=== PATIENT | female | born 1990 | race Caucasian/White ===

== ENCOUNTER 2016-12-16 12:58 | Emergency (ER) | payer OTHER, MEDICAID ==
[~2016-12-16] VITALS: Ht 152.4 cm; Wt 61.2 kg
[2016-12-16] MEDS ORDERED: fentaNYL INJECTION 100 MCG/2 ML AMP ONE ×3 (13:18→16:02)
[2016-12-16 13:24] LABS: RED BLOOD COUNT 4.41 10^6/uL (4.35-5.85); RED CELL DISTRIBUTION WIDTH 12.2 % (10.0-14.5); WHITE BLOOD COUNT 6.6 10^3/uL (4.3-11.0)
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
[2016-12-16] MEDS ORDERED: ONDANSETRON 4 MG/2 ML (SDV) Z0FRAN ONE (13:42)
[2016-12-16 13:44] LABS: ALANINE AMINOTRANSFERASE 15 U/L (0-55); ALCOHOL < 10 MG/DL (<10); ANION GAP 5 MMOL/L (5-14); ASPARTATE AMINO TRANSFERASE 23 U/L (5-34); BILIRUBIN,DIRECT 0.2 MG/DL (0.0-0.3); BILIRUBIN,INDIRECT 0.3 MG/DL; BILIRUBIN,TOTAL 0.5 MG/DL (0.1-1.0); BLOOD UREA NITROGEN 12 MG/DL (7-18); BUN/CREATININE RATIO 17; CALCIUM 8.2 MG/DL (8.5-10.1); CARBON DIOXIDE 26 MMOL/L (21-32); CHLORIDE 110 MMOL/L (98-107); GFR ESTIMATED > 60; GLUCOSE 87 MG/DL (70-105); POTASSIUM 3.5 MMOL/L (3.6-5.0); SODIUM 141 MMOL/L (135-145); TOTAL PROTEIN 6.4 G/DL (6.4-8.2)
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
--- NOTE | 2016-12-16 15:20 | Diagnostic Imaging Report ---
EXAMINATION: Two views of the right femur. INDICATION: Right hip pain. FINDINGS: There is no fracture, dislocation or radiopaque foreign body. IMPRESSION: Unremarkable exam. Dictated by: Dictated on workstation # [id number]
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
[2016-12-16] MEDS ORDERED: [UNRECOGNIZED DRUG - REMARK] PO (15:27)
[2016-12-16] MEDS ORDERED: MUPIROCIN 2% OINT 22 GM (BACTROBAN) TUBE ONE (16:08)
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
[2016-12-16] MEDS ORDERED: CEPH500T PO (16:53)
[2016-12-16] MEDS ORDERED: CYCL10TA9 PO (16:53)
[2016-12-16] MEDS ORDERED: HYDR-3816 PO (16:53)
[2016-12-16 17:08] VITALS: BP 119/64
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
== END 2016-12-16 17:08 | disposition home or self-care (01) ==
LOC: ER 13:06
DX: S60.511A Abrasion of right hand, initial encounter (principal); S19.9XXA Unspecified injury of neck, initial encounter; S80.11XA Contusion of right lower leg, initial encounter; S09.90XA Unspecified injury of head, initial encounter; V48.6XXA Car passenger injured in noncollision transport accident in traffic accident, initial encounter; Y92.410 Unspecified street and highway as the place of occurrence of the external cause; Y99.8 Other external cause status
CPT/HCPCS: 36415; 70450; 72125; 72170; 73130; 73552; 80048; 80076; 80320; 84703; 85027; 86850; 86900; 86901; 96374; 96375; 96376